=== PATIENT | female | born 1985 | race Caucasian/White ===

== ENCOUNTER 2017-03-05 09:05 | Emergency (ER) | payer SELFPAY ==
[2017-03-05 09:23] VITALS: RESP 16; TEMP 98
--- NOTE | 2017-03-05 10:17 | DI ---
RIGHT FOOT, 03/05/2017 9:22 AM: Clinical History: Trauma. Previous Exam: None at this facility. 3 views are submitted. There is no acute soft tissue, osseous, or joint abnormality. Reading: Normal right foot exam.
--- NOTE | 2017-03-05 10:17 | DI ---
RIGHT ANKLE, 03/05/2017 9:23 AM: Clinical History: Trauma. Previous Exam: None at this facility. 3 views are submitted. There is no acute soft tissue, osseous, or joint abnormality. There is a bony density at the tip of the fibula either representing changes related to old trauma or an accessory os sicle. Reading: Normal right ankle exam.
--- NOTE | 2017-03-05 21:19 | PDOC ---
Foot / Ankle Injury - General Chief Complaint: Lower Extremity Problem/Injury Stated Complaint: fell,injured right foot Date Seen by Provider: 03/05/17 Time Seen by Provider: 09:07 Source: POSITIVE: Patient Exam Limitations: POSITIVE: No limitations Nurse's Notes Reviewed & Considered: Yes - History of Present Illness Initial Comments: The patient is a 32-year-old female. She states that approximately one hour [employer] she was descending some steps, carrying her toddler child. She states she tripped on a shoe which was left on the step. She stumbled forward and forced her right foot into inversion. She complains of pain over the distal and lateral aspect of the right foot and also over the lateral aspect of the right ankle. She states that she has had difficulty ambulating since her accident. No paresthesia or sensory or motor symptoms. She is noted some swelling to the dorsolateral aspect of her right foot. Have you received a tetanus shot in the past 10 years?: Yes Location: Right Ankle Timing: REPORTS: Abrupt Duration: 1 hour Severity: Moderate Quality: REPORTS: "Pain", Tenderness (tenderness on palpation) Location at Time of Onset: REPORTS: Home Context: REPORTS: Twist Modifying Factors: REPORTS: Other (pain is exacerbated by weightbearing and direct palpation) Associated Symptoms: REPORTS: Swelling (lateral aspect of distal portion of right foot) Any Prior Injuries Related to Current Complaint?: No - Patient Allergies Allergies/Adverse Reactions: Allergies Allergy/AdvReac Type Severity Reaction Status Date / Time latex [Latex] Allergy Intermediate HIVES Verified 03/05/17 09:16 Penicillins Allergy Intermediate RASH Verified 03/05/17 09:16 - Patient Home Medications Home Medications: Home Medications Multivitamin Tab [ Plus Tab] 1 tab PO DAILY #90 tab 05/01/16 Venlafaxine HCl [Venlafaxine Hcl Er] 1 cap PO DAILY #30 cap 02/11/17 Past Medical History - heen HEENT History: Denies History Additional HEENT History: glasses, hearing to left ear diminished Cardiovascular History: Denies History Respiratory History: Denies History Gastrointestinal History: Denies History Genitourinary History: Denies History Endocrine History: Denies History Musculoskeletal History: Denies History Prosthesis or Implant: No Neurological History: Migraines Additional Neurological History: pt states, "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 Blood Disorders: Denies History Psychiatric History: Anxiety Disorders History of Sexually Transmitted Diseases: No Obstetrical History: Denies History Cancer History: Denies History In Past Year Been Physically Harmed or Verbally Threatened: No History of MDRO: No History of Other Communicable Diseases: No Tobacco Use: Current Every Day Smoker Alcohol Use: Occasionally Substance Use Type: None Previous Surgical History: Yes Type / Date of Surgery: exploratory lap Anesthesia Reactions: No Malignant Hyperthermia: No Significant Family History: No pertinent family hx Past Medical History Reviewed: Reviewed - No Changes ROS - Limitations ROS Limitations: No Limitations Constitution: REPORTS: Denies Symptoms Cardiovascular: REPORTS: Denies Cardiac Symptoms Respiratory: REPORTS: Denies Resp Symptoms Neurological: REPORTS: Denies Neuro Symptoms Gastrointestinal: REPORTS: Denies GI Symptoms Endocrine: REPORTS: Denies Symptoms Musculoskeletal: REPORTS: Joint Pain (Lateral aspect of the right ankle), Muscle Aches (Lateral aspect of right foot and ankle), Recent Injury (As above) Genitourinary: REPORTS: Denies Symptoms Eyes: REPORTS: Denies Symptoms ENT: REPORTS: Denies Symptoms Skin: REPORTS: Denies Skin Symptoms Lympathic: REPORTS: Denies Lympathic Symptoms Immunologic: POSITIVE: Denies Symptoms Psychiatric: POSITIVE: Denies Psych Symptoms Foot / Ankle Exam - General Appearance General Appearance: POSITIVE: Alert, Cooperative, No Acute Distress. NEGATIVE: No Evidence of Trauma - Extremities Foot: POSITIVE: Soft Tissue Tenderness, Bony Tenderness, Swelling (pain and some swelling lateral aspect of distal half of right foot). NEGATIVE: Ecchymosis, Limited ROM d/t Pain, Mahoney. ROM d/t Decr. Funct., Deformity, Nail Injury, Complete Avulsion, Partial Avulsion, Subungual Hematoma Ankle: POSITIVE: Normal ROM, Stable, Soft-Tissue Tenderness, Bony Tenderness ( over lateral malleolus, right), See Diagram. NEGATIVE: Swelling, Ecchymosis, Limited ROM, Deformity, Ligamentous Instability Gait: POSITIVE: Gait not Tested d/t Pain Neuro: POSITIVE: Sensation Normal, Motor Normal Vascular: POSITIVE: No Vascular Compromise, Full Pulses, Equal Pulses Tendons: POSITIVE: Tendon Function Normal Skin: POSITIVE: Warm, Dry - Neck / Back Neck / Back: Normal Inspection - Respiratory / CVS Respiratory / CVS: POSITIVE: Chest Non-Tender, No Respiratory Distress, Heart Sounds Normal, Regular Rate/Rhythm, Breath Sounds Normal Peripheral Pulses: Radial (R): 2+, Radial (L): 2+ Images - Lower Extremities Feet: 1 - Pain on palpation with some swelling 2 - Some discomfort over lateral malleolus Procedures - Splinting Time Splint Applied: 12:10 Location: Cam Walker right lower extremity Pre-Proc Neuro Vasc Exam: Normal Splint Type: CAM Walker, Crutches Splint Form: Short Extremity Applied By:: Nurse Post-Proc Neuro Vasc Exam: Normal Foot / Ankle Progress - Results Reviewed by me Pain Medication Addressed: POSITIVE: Yes (recommended Advil or Tylenol) School/Work Release Addressed: POSITIVE: Yes Xrays/CTs/US Reviewed by me: Yes Discussed with Radiologist: Yes Radiology Results: POSITIVE: Right, Ankle, Foot Radiology Findings: X-ray right ankle and foot normal - Patient's Progress Re-Examine Time:: 12:20 Re-Examine Comment: Good relief of pain with immobilization. Status: POSITIVE: Improved, Re-Examined - Consult Counseled: POSITIVE: Patient, RE: Radiology Results, RE: DX, RE: Need for F/U Patient Care Time - Estimated PCT Patient Care Time (In Minutes): 31 Vital Signs - VS Reviewed Vital Signs Reviewed: Yes Discharge Clinical Impression: Sprain of ankle, Foot sprain Discharge Disposition: Discharged to Home Condition: Stable Patient Instructions Given at Discharge: Ankle Sprain (ED), Foot Sprain (ED) Additional Instructions: Use cam walker. If you are not able to bear weight comfortably using the cam walker, use crutches and bear no weight on the right foot for a few days, until you can walk comfortably using a cam walker. Advil or Tylenol for pain. Cool compresses. Elevate leg. Follow-up with your primary care provider. Return here anytime if condition worsens in any way. Follow Up With: JESSICA OLSEN [Primary Care Provider] - (Instructions as above. Follow-up with your primary care provider. Return here as necessary.)
== END 2017-03-05 10:23 | disposition home or self-care (01) ==
LOC: ER 09:05
DX: S93.401A Sprain of unspecified ligament of right ankle, initial encounter (principal); X50.1XXA Overexertion from prolonged static or awkward postures, initial encounter
CPT/HCPCS: 73610; 73630; 99283